=== PATIENT | male | born 1945 | race Caucasian/White ===

== ENCOUNTER → 2024-12-20 | Outpatient (CLI) | payer MEDICARE, OTHER ==
[~2024-12-20] MED LIST: ACET-2247 PO; ALBU2.5V39 NEB; AMLO-257 PO; APIX2.5T PO; ATOR40TA28 PO; COLC-3 PO; EMPA10TA3 PO; FINA-27 PO; FLUT1BLS3 IH; HYDR-4268 TP; LEVO50 PO; METO-327 PO; RABE-13 PO; SACU1TAB PO; SPIR-37 PO; TAMS0.4C94 PO; TRIA60LO13 TP
[2024-12-20 12:30] VITALS: BP 131/62; PULSE 62; RESP 18; TEMP 97.7; O2SAT 98
== END | disposition home or self-care (01) ==
LOC: SRCNTR 12:07
PROVIDERS: ATTEND Internal Medicine Pulmonary Disease
DX: E03.9 Hypothyroidism, unspecified (principal); F03.90 Unspecified dementia, unspecified severity, without behavioral disturbance, psychotic disturbance, mood disturbance, and anxiety; I25.10 Atherosclerotic heart disease of native coronary artery without angina pectoris; I50.9 Heart failure, unspecified; J43.9 Emphysema, unspecified; J44.1 Chronic obstructive pulmonary disease with (acute) exacerbation; M10.9 Gout, unspecified; Z79.01 Long term (current) use of anticoagulants; Z79.899 Other long term (current) drug therapy; Z87.891 Personal history of nicotine dependence; Z95.0 Presence of cardiac pacemaker
CPT/HCPCS: G0463; Z7500

== ENCOUNTER → 2025-03-13 | Outpatient (CLI) | payer MEDICARE, OTHER ==
[2025-03-13 10:16] VITALS: BP 133/60; PULSE 69; RESP 13; TEMP 98.6; O2SAT 99
== END | disposition home or self-care (01) ==
LOC: SRCNTR 09:47
PROVIDERS: ATTEND Internal Medicine Pulmonary Disease
DX: J44.1 Chronic obstructive pulmonary disease with (acute) exacerbation (principal); R91.1 Solitary pulmonary nodule; E03.9 Hypothyroidism, unspecified; I50.9 Heart failure, unspecified; M10.9 Gout, unspecified; F03.90 Unspecified dementia, unspecified severity, without behavioral disturbance, psychotic disturbance, mood disturbance, and anxiety; I25.10 Atherosclerotic heart disease of native coronary artery without angina pectoris; Z79.01 Long term (current) use of anticoagulants; Z79.899 Other long term (current) drug therapy; Z87.891 Personal history of nicotine dependence; Z95.0 Presence of cardiac pacemaker
CPT/HCPCS: G0463; Z7500

== ENCOUNTER 2025-04-10 15:24 | Inpatient (IN) | payer MEDICARE, OTHER ==
[~2025-04-10] VITALS: Ht 183.5 cm; Wt 75.6 kg
[2025-04-10] MEDS ORDERED: TRAZ-252 PO (15:37)
[2025-04-10] MEDS ORDERED: 0.9% SODIUM CHLORIDE 10 ML SYRINGE IVP PRN (15:45)
[2025-04-10] MEDS: CefTRIAXone 1 GM/DEXTROSE 50 ML IV ONE (15:48)
[2025-04-10 15:58] LABS: BASOPHILS % (AUTO) 0.3 % (0.0-2.0); EOSINOPHILS % (AUTO) 0.1 % (1.0-6.0); HEMATOCRIT 29.2 % (41-53); HEMOGLOBIN 9.7 g/dL (13.5-17.5); LYMPHOCYTES # (AUTO) 0.8 K/uL (1.0-4.8); LYMPHOCYTES % (AUTO) 12.3 % (22.0-44.0); MEAN CORPUSCULAR HEMOGLOBIN 33.7 pg (26.0-34.0); MEAN CORPUSCULAR HGB CONC 33.3 G/dL (31.0-37.0); MEAN CORPUSCULAR VOLUME 101 fL (80-100); MONOCYTES # (AUTO) 0.9 K/uL (0.1-1.0); MONOCYTES % (AUTO) 12.6 % (2.0-9.0); NEUTROPHILS # (AUTO) 5.1 K/uL (1.8-7.7); NEUTROPHILS % (AUTO) 74.7 % (40.0-70.0); PLATELET COUNT (AUTO) 287 K/uL (150-450); RED BLOOD CELL COUNT(AUTO) 2.88 MIL/uL (4.50-5.90); RED CELL DISTRIBUTION WIDTH 14.4 % (11.5-14.5); WHITE BLOOD COUNT (AUTO) 6.8 K/uL (4.5-11.0)
[2025-04-10 16:02] LABS: ANION GAP 11 mmol/L (8-16); CALCIUM, TOTAL 9.3 mg/dL (8.8-10.5); CARBON DIOXIDE 24 mmol/L (22-29); CHLORIDE 108 mmol/L (98-107); CREATININE 1.58 mg/dL (0.60-1.30); GLOMERULAR FILTR. RATE CALC 42 mL/min (>60); GLUCOSE,RANDOM 131 mg/dL (70-110); POTASSIUM 4.5 mmol/L (3.5-5.1); SODIUM SERUM 143 mmol/L (136-145); UREA NITROGEN, BLOOD 28 mg/dL (7-18)
[2025-04-10 16:10] LABS: LACTIC ACID 1.1 mmol/L (0.4-2.0)
[2025-04-10 16:11] LABS: TROPONIN I-HIGH SENSITIVITY 17 ng/L (<76)
[2025-04-10 16:18] LABS: PROTHROMBIN TIME 11.1 SEC (9.4-11.6)
[2025-04-10 16:21] LABS: B-TYPE NATRIURETIC PEPTIDE 186 pg/mL (0-100)
[2025-04-10 16:23] LABS: INFLUENZA TYPE A NEGATIVE FOR TYPE A (NEGATIVE); INFLUENZA TYPE B NEGATIVE FOR TYPE B (NEGATIVE)
[2025-04-10] MEDS ORDERED: ALBU18HF12 IH (16:24)
[2025-04-10] MEDS ORDERED: SPIR25TA6 PO (16:24)
[2025-04-10] MEDS ORDERED: FURO20TA4 PO (16:24)
[2025-04-10] MEDS ORDERED: RABE20TA31 PO (16:24)
[2025-04-10] MEDS ORDERED: METO-416 PO (16:24)
[2025-04-10] MEDS ORDERED: ATOR40TA71 PO (16:24)
[2025-04-10] MEDS ORDERED: FINA5TAB41 PO (16:24)
[2025-04-10] MEDS ORDERED: LEVO50TA11 PO (16:24)
[2025-04-10] MEDS ORDERED: AMLO5TAB66 PO (16:24)
[2025-04-10] MEDS: SODIUM CHLORIDE 0.9% 1,550 ML IV ONE (16:54)
[2025-04-10 18:48] LABS: APPEARANCE,URINE CLEAR (CLEAR); BILIRUBIN,URINE NEGATIVE (NEGATIVE); COLOR,URINE YELLOW (YELLOW); GLUCOSE, URINE (UA) >=1000 mg/dL (NEGATIVE); KETONES,URINE NEGATIVE (NEGATIVE); LEUKOCYTE ESTERASE ,URINE NEGATIVE (NEGATIVE); NITRATE,URINE NEGATIVE (NEGATIVE); OCCULT BLOOD,URINE NEGATIVE (NEGATIVE); PH,URINE 5.5 (5.0-8.0); PROTEIN,URINE 30-70 mg/dL (NEGATIVE); SPECIFIC GRAVITIY, URINE 1.025 (1.003-1.030); UROBILINOGEN,URINE <=1.0 mg/dL (<=1.0)
[2025-04-10 19:09] LABS: RBC,URINE 0-2 /HPF (0-2)
[2025-04-10 19:10] LABS: BACTERIA,URINE None Seen /HPF (None Seen); SQUAMOUS EPITHELIAL CELL,UR Rare /LPF (None Seen); WBC,URINE None Seen /HPF (0-5)
[2025-04-10] MEDS ORDERED: IPRATROPIUM BROMIDE 0.5 MG/2.5 ML NEB SOLUTION NEB PRN (20:00)
[2025-04-10] MEDS ORDERED: ALBUTEROL SULFATE 2.5 MG/0.5 ML NEB SOLUTION NEB PRN (20:00)
[2025-04-10] MEDS ORDERED: ONDANSETRON HCL 4 MG/2 ML VIAL IVP PRN (20:00)
[2025-04-10] MEDS: DOCUSATE SODIUM 100 MG CAPSULE PO SCH (20:51)
[2025-04-10] MEDS ORDERED: AZITHROMYCIN 500 MG/NS 250 ML IV ONE (21:15)
[2025-04-10] MEDS ORDERED: DEXTROSE 50%-WATER 25 GM/50 ML SYRINGE IVP PRN (21:30)
[2025-04-10] MEDS ORDERED: COLCHICINE 0.6 MG TABLET PO PRN (21:30)
[2025-04-10] MEDS: PIPERACILLIN/TAZO 3.375 GM/D5W 50 ML IV SCH (21:55)
[2025-04-10] MEDS: SODIUM CHLORIDE 0.9% 250 ML IV ONE (21:56)
[2025-04-10 23:01] VITALS: BP 139/61; PULSE 65; RESP 18; TEMP 97.9; O2SAT 97
[2025-04-11] MEDS ORDERED: HEPARIN SODIUM,PORCINE 5,000 UNITS/ML VIAL SQ SCH
[2025-04-11] MEDS ORDERED: SODIUM CHLORIDE 0.9% 500 ML IV ONE (04:18)
[2025-04-11 04:37] VITALS: BP 154/63; PULSE 64; RESP 18; TEMP 98; O2SAT 96
[2025-04-11] MEDS: LEVOTHYROXINE SODIUM 50 MCG TABLET PO SCH (05:36)
[2025-04-11 06:59] LABS: BASOPHILS % (AUTO) 0.3 % (0.0-2.0); EOSINOPHILS % (AUTO) 0.9 % (1.0-6.0); HEMATOCRIT 29.7 % (41-53); HEMOGLOBIN 10.1 g/dL (13.5-17.5); LYMPHOCYTES # (AUTO) 0.9 K/uL (1.0-4.8); LYMPHOCYTES % (AUTO) 20.3 % (22.0-44.0); MEAN CORPUSCULAR HEMOGLOBIN 34.9 pg (26.0-34.0); MEAN CORPUSCULAR HGB CONC 34.1 G/dL (31.0-37.0); MEAN CORPUSCULAR VOLUME 103 fL (80-100); MONOCYTES # (AUTO) 0.7 K/uL (0.1-1.0); MONOCYTES % (AUTO) 15.3 % (2.0-9.0); NEUTROPHILS # (AUTO) 2.9 K/uL (1.8-7.7); NEUTROPHILS % (AUTO) 63.2 % (40.0-70.0); PLATELET COUNT (AUTO) 230 K/uL (150-450); RED CELL DISTRIBUTION WIDTH 14.2 % (11.5-14.5); WHITE BLOOD COUNT (AUTO) 4.7 K/uL (4.5-11.0)
[2025-04-11 07:11] VITALS: BP 151/58; PULSE 64; RESP 18; TEMP 98; O2SAT 98
[2025-04-11 07:13] LABS: CALCIUM, TOTAL 9.2 mg/dL (8.8-10.5); CREATININE 1.34 mg/dL (0.60-1.30); POTASSIUM 3.9 mmol/L (3.5-5.1)
[2025-04-11] MEDS: METOPROLOL SUCCINATE 50 MG ER TABLET PO SCH (08:35)
[2025-04-11] MEDS: TAMSULOSIN HCL 0.4 MG CAPSULE PO SCH (08:35)
[2025-04-11] MEDS: SPIRONOLACTONE 25 MG TABLET PO SCH (08:36)
[2025-04-11] MEDS: ATORVASTATIN CALCIUM 40 MG TABLET PO SCH (08:36)
[2025-04-11] MEDS: FINASTERIDE 5 MG TABLET PO SCH (08:37)
[2025-04-11] MEDS: APIXABAN 2.5 MG TABLET PO SCH (08:37)
[2025-04-11 09:23] LABS: GLUCOMETER DEV NAME(LOC) 5S.1D; GLUCOSE,POINT OF CARE 106 MG/DL (70-110)
[2025-04-11 09:23] LABS: GLUCOMETER DEV NAME(LOC) 5S.1D; GLUCOSE,POINT OF CARE 114 MG/DL (70-110)
[2025-04-11] MEDS: RABEPRAZOLE SODIUM 20 MG PO SCH (09:30)
[2025-04-11 11:05] LABS: RBC MORPHOLOGY COMMENT ABNORMAL RBC MORPH
[2025-04-11 12:05] VITALS: BP 148/72; PULSE 65; RESP 19; TEMP 97.5; O2SAT 97
[2025-04-11 15:23] VITALS: BP 150/63; PULSE 74; RESP 19; TEMP 98.1; O2SAT 97
[2025-04-11] MEDS ORDERED: CefTRIAXone 1 GM/DEXTROSE 50 ML IV SCH (16:00)
[2025-04-11 17:26] LABS: GLUCOMETER DEV NAME(LOC) 5S.1D; GLUCOSE,POINT OF CARE 112 MG/DL (70-110)
[2025-04-11 17:41] LABS: GLUCOMETER DEV NAME(LOC) 5N.2C; GLUCOSE,POINT OF CARE 122 MG/DL (70-110)
[2025-04-11 20:00] VITALS: BP 135/49; PULSE 77; RESP 18; TEMP 98.4; O2SAT 95
[2025-04-12 00:33] VITALS: BP 144/63; PULSE 73; RESP 17; TEMP 98.8; O2SAT 99
[2025-04-12 04:00] VITALS: BP 139/54; PULSE 68; RESP 18; TEMP 97.7; O2SAT 96
[2025-04-12 04:51] LABS: GLUCOMETER DEV NAME(LOC) 5S.1D; GLUCOSE,POINT OF CARE 117 MG/DL (70-110)
[2025-04-12 06:54] LABS: BASOPHILS % (AUTO) 0.5 % (0.0-2.0); HEMATOCRIT 28.3 % (41-53); HEMOGLOBIN 9.6 g/dL (13.5-17.5); LYMPHOCYTES # (AUTO) 1.5 K/uL (1.0-4.8); LYMPHOCYTES % (AUTO) 22.7 % (22.0-44.0); MEAN CORPUSCULAR HEMOGLOBIN 34.4 pg (26.0-34.0); MEAN CORPUSCULAR HGB CONC 33.8 G/dL (31.0-37.0); MEAN CORPUSCULAR VOLUME 102 fL (80-100); MONOCYTES # (AUTO) 1.1 K/uL (0.1-1.0); MONOCYTES % (AUTO) 16.7 % (2.0-9.0); NEUTROPHILS # (AUTO) 3.8 K/uL (1.8-7.7); NEUTROPHILS % (AUTO) 59.1 % (40.0-70.0); PLATELET COUNT (AUTO) 268 K/uL (150-450); RED BLOOD CELL COUNT(AUTO) 2.78 MIL/uL (4.50-5.90); RED CELL DISTRIBUTION WIDTH 13.9 % (11.5-14.5); WHITE BLOOD COUNT (AUTO) 6.4 K/uL (4.5-11.0)
[2025-04-12 07:10] LABS: RBC MORPHOLOGY COMMENT ABNORMAL RBC MORPH
[2025-04-12 07:15] LABS: CALCIUM, TOTAL 9.1 mg/dL (8.8-10.5); CREATININE 1.56 mg/dL (0.60-1.30); POTASSIUM 3.9 mmol/L (3.5-5.1)
[2025-04-12 07:46] LABS: GLUCOMETER DEV NAME(LOC) 5N.2C; GLUCOSE,POINT OF CARE 112 MG/DL (70-110)
[2025-04-12 08:41] VITALS: BP 148/57; PULSE 77; RESP 18; TEMP 98.7; O2SAT 99
[2025-04-12] MEDS: ACETAMINOPHEN 325 MG TABLET PO PRN (09:09)
[2025-04-12] MEDS: INSULIN LISPRO 100 UNITS/ML SQ PRN (11:39)
[2025-04-12 11:47] VITALS: BP 115/59; PULSE 67; RESP 20; TEMP 97.7; O2SAT 95
[2025-04-12 11:56] LABS: GLUCOMETER DEV NAME(LOC) 5S.2D; GLUCOSE,POINT OF CARE 165 MG/DL (70-110)
[2025-04-12] MEDS: SODIUM CHLORIDE 0.9% 1,000 ML IV ONE (13:33)
[2025-04-12 15:52] VITALS: BP 139/62; PULSE 63; RESP 18; TEMP 97.7; O2SAT 97
[2025-04-12 17:55] LABS: GLUCOMETER DEV NAME(LOC) 5S.1D; GLUCOSE,POINT OF CARE 127 MG/DL (70-110)
[2025-04-12 20:00] VITALS: BP 143/62; PULSE 69; RESP 17; TEMP 97.7; O2SAT 95
[2025-04-13] VITALS: BP 161/64; PULSE 67; RESP 16; TEMP 98.1; O2SAT 97
[2025-04-13 04:53] VITALS: BP 157/67; PULSE 71; RESP 16; TEMP 97.9; O2SAT 94
[2025-04-13 07:41] LABS: BASOPHILS % (AUTO) 0.4 % (0.0-2.0); EOSINOPHILS % (AUTO) 1.3 % (1.0-6.0); HEMOGLOBIN 9.3 g/dL (13.5-17.5); LYMPHOCYTES % (AUTO) 24.6 % (22.0-44.0); MEAN CORPUSCULAR HEMOGLOBIN 34.7 pg (26.0-34.0); MEAN CORPUSCULAR HGB CONC 34.5 G/dL (31.0-37.0); MEAN CORPUSCULAR VOLUME 101 fL (80-100); MONOCYTES # (AUTO) 0.7 K/uL (0.1-1.0); MONOCYTES % (AUTO) 17.4 % (2.0-9.0); NEUTROPHILS # (AUTO) 2.2 K/uL (1.8-7.7); NEUTROPHILS % (AUTO) 56.3 % (40.0-70.0); PLATELET COUNT (AUTO) 237 K/uL (150-450); RED BLOOD CELL COUNT(AUTO) 2.69 MIL/uL (4.50-5.90); RED CELL DISTRIBUTION WIDTH 13.7 % (11.5-14.5); WHITE BLOOD COUNT (AUTO) 3.9 K/uL (4.5-11.0)
[2025-04-13 07:43] LABS: CALCIUM, TOTAL 8.9 mg/dL (8.8-10.5); CREATININE 1.38 mg/dL (0.60-1.30); POTASSIUM 3.6 mmol/L (3.5-5.1)
[2025-04-13 08:00] LABS: RBC MORPHOLOGY COMMENT ABNORMAL RBC MORPH
[2025-04-13 08:20] LABS: GLUCOMETER DEV NAME(LOC) 5S.2D; GLUCOSE,POINT OF CARE 111 MG/DL (70-110)
[2025-04-13 08:20] LABS: GLUCOMETER DEV NAME(LOC) 5S.2D; GLUCOSE,POINT OF CARE 161 MG/DL (70-110)
[2025-04-13 08:59] VITALS: BP 161/65; PULSE 60; RESP 17; TEMP 98.3; O2SAT 96
[2025-04-13 12:13] VITALS: BP 156/61; PULSE 64; RESP 18; TEMP 97.7; O2SAT 95
[2025-04-13 12:15] LABS: GLUCOMETER DEV NAME(LOC) 5N.2C; GLUCOSE,POINT OF CARE 147 MG/DL (70-110)
[2025-04-13] MEDS ORDERED: AMOX-457 PO (15:19)
[2025-04-13 16:26] VITALS: BP 151/88; PULSE 80; RESP 17; TEMP 98.2; O2SAT 95
[2025-04-13 17:30] LABS: GLUCOMETER DEV NAME(LOC) 5S.2D; GLUCOSE,POINT OF CARE 121 MG/DL (70-110)
[2025-04-13 19:44] VITALS: BP 141/60; PULSE 60; RESP 18; TEMP 97.3; O2SAT 97
[2025-04-13] MEDS ORDERED: SODIUM CHLORIDE 0.9% 250 ML IV ONE (21:00)
[2025-04-14 00:02] VITALS: BP 135/66; PULSE 62; RESP 18; TEMP 97.6; O2SAT 96
[2025-04-14 02:30] LABS: GLUCOMETER DEV NAME(LOC) 5N.2C; GLUCOSE,POINT OF CARE 143 MG/DL (70-110)
[2025-04-14 04:29] VITALS: BP 148/65; PULSE 64; RESP 18; TEMP 97.7; O2SAT 96
[2025-04-14 07:04] LABS: CALCIUM, TOTAL 9.5 mg/dL (8.8-10.5); CREATININE 1.4 mg/dL (0.60-1.30); POTASSIUM 3.8 mmol/L (3.5-5.1)
[2025-04-14 07:10] LABS: BASOPHILS % (AUTO) 0.6 % (0.0-2.0); EOSINOPHILS % (AUTO) 1.3 % (1.0-6.0); HEMATOCRIT 29.7 % (41-53); LYMPHOCYTES # (AUTO) 1.4 K/uL (1.0-4.8); LYMPHOCYTES % (AUTO) 31.1 % (22.0-44.0); MEAN CORPUSCULAR HGB CONC 33.7 G/dL (31.0-37.0); MEAN CORPUSCULAR VOLUME 101 fL (80-100); MONOCYTES # (AUTO) 0.7 K/uL (0.1-1.0); MONOCYTES % (AUTO) 14.6 % (2.0-9.0); NEUTROPHILS # (AUTO) 2.4 K/uL (1.8-7.7); NEUTROPHILS % (AUTO) 52.4 % (40.0-70.0); PLATELET COUNT (AUTO) 273 K/uL (150-450); RED BLOOD CELL COUNT(AUTO) 2.95 MIL/uL (4.50-5.90); RED CELL DISTRIBUTION WIDTH 13.9 % (11.5-14.5); WHITE BLOOD COUNT (AUTO) 4.6 K/uL (4.5-11.0)
[2025-04-14 08:25] VITALS: BP 161/67; PULSE 66; RESP 18; TEMP 97.4; O2SAT 96
[2025-04-14 10:56] LABS: GLUCOMETER DEV NAME(LOC) 5S.1D; GLUCOSE,POINT OF CARE 120 MG/DL (70-110)
[2025-04-14 11:22] VITALS: BP 133/50; PULSE 61; RESP 18; TEMP 98.1; O2SAT 98
[2025-04-14 15:19] VITALS: BP 142/67; PULSE 76; RESP 18; TEMP 97.7; O2SAT 99
[2025-04-15 05:41] LABS: GLUCOMETER DEV NAME(LOC) 5S.2D; GLUCOSE,POINT OF CARE 187 MG/DL (70-110)
== END 2025-04-14 17:30 | disposition home health service (06) | DRG 871 ==
LOC: EMS 15:24 → EDH 19:54 → 5S 22:39
PROVIDERS: ADMIT Internal Medicine; ATTEND Internal Medicine
DX: A41.9 Sepsis, unspecified organism (principal); G93.41 Metabolic encephalopathy; J69.0 Pneumonitis due to inhalation of food and vomit; N17.9 Acute kidney failure, unspecified; I48.20 Chronic atrial fibrillation, unspecified; I13.0 Hypertensive heart and chronic kidney disease with heart failure and stage 1 through stage 4 chronic kidney disease, or unspecified chronic kidney disease; Z66 Do not resuscitate; K21.9 Gastro-esophageal reflux disease without esophagitis; F03.90 Unspecified dementia, unspecified severity, without behavioral disturbance, psychotic disturbance, mood disturbance, and anxiety; N18.9 Chronic kidney disease, unspecified; R09.02 Hypoxemia; J43.9 Emphysema, unspecified; I50.9 Heart failure, unspecified; E03.9 Hypothyroidism, unspecified; E78.00 Pure hypercholesterolemia, unspecified; D64.9 Anemia, unspecified; N40.0 Benign prostatic hyperplasia without lower urinary tract symptoms; Z79.01 Long term (current) use of anticoagulants; Z79.84 Long term (current) use of oral hypoglycemic drugs; Z79.899 Other long term (current) drug therapy; Z86.73 Personal history of transient ischemic attack (TIA), and cerebral infarction without residual deficits; Z95.0 Presence of cardiac pacemaker; Z87.01 Personal history of pneumonia (recurrent)
CPT/HCPCS: 51701; 70450; 71045; 71250; 74230; 80048; 81001; 82962; 83605; 83735; 83880; 84145; 84484; 85025; 85610; 87040; 87081; 87804; 92610; 92611; 93005; 93308; 97162; 97530; 99285; G0378; J0696; J2543; J7030; J7040; J7050; 36415-L1; 36415-TC

== ENCOUNTER 2025-04-20 01:52 | Emergency (ER) | payer MEDICARE, OTHER ==
[~2025-04-20] VITALS: Ht 185.4 cm; Wt 78.2 kg
[~2025-04-20 01:52] MED LIST changes: +ALBU18HF12 IH; +AMOX-457 PO; +TRAZ-252 PO
[2025-04-20 02:17] LABS: COVID AG,FIA SOURCE NASAL SWAB
[2025-04-20 02:36] LABS: INFLUENZA TYPE A NEGATIVE FOR TYPE A (NEGATIVE); INFLUENZA TYPE B NEGATIVE FOR TYPE B (NEGATIVE)
[2025-04-20 02:38] LABS: SARS-COV2 (COVID) ANTIGEN,FIA Negative (Negative)
[2025-04-20 03:59] VITALS: TEMP 98.1
[2025-04-20] MEDS ORDERED: BENZ-227 PO (04:51)
[2025-04-20 06:22] VITALS: BP 140/54; PULSE 61; RESP 15; O2SAT 95
== END 2025-04-20 08:24 | disposition home or self-care (01) ==
LOC: EMS 01:53
DX: J44.9 Chronic obstructive pulmonary disease, unspecified (principal); R05.3 Chronic cough; I11.0 Hypertensive heart disease with heart failure; I50.9 Heart failure, unspecified; E03.9 Hypothyroidism, unspecified; E78.00 Pure hypercholesterolemia, unspecified; F03.90 Unspecified dementia, unspecified severity, without behavioral disturbance, psychotic disturbance, mood disturbance, and anxiety; K21.9 Gastro-esophageal reflux disease without esophagitis; Z79.01 Long term (current) use of anticoagulants; Z79.899 Other long term (current) drug therapy; Z20.822 Contact with and (suspected) exposure to COVID-19
CPT/HCPCS: 71045; 87804; 99284